=== PATIENT | male | born 1995 | race African-American/Black ===

== ENCOUNTER 2018-06-28 17:12 | Emergency (ER) | payer OTHER ==
[2018-06-28] MEDS: predniSONE 20 MG TAB PO (18:29)
[2018-06-28] MEDS: IPRATROPIUM (NEB) 0.5 MG/2.5 ML AMP HHN (18:30)
[2018-06-28] MEDS: ALBUTEROL 0.083% (NEB) 2.5 MG/3 ML AMP HHN (18:30)
== END 2018-06-28 19:27 | disposition home or self-care (01) ==
LOC: FTE 17:12
DX: J06.9 Acute upper respiratory infection, unspecified (principal)
CPT/HCPCS: 94664; 99283

== ENCOUNTER 2018-07-19 17:43 | Emergency (ER) | payer OTHER | END 2018-07-19 22:10 | disposition home or self-care (01) | LOC: FTE 17:43 | DX: S82.891A Other fracture of right lower leg, initial encounter for closed fracture (principal); X58.XXXA Exposure to other specified factors, initial encounter; Y92.9 Unspecified place or not applicable | CPT/HCPCS: 29505; 73610-RT; 99283-25 ==